=== PATIENT | male | born 2000 | race Caucasian/White ===

== ENCOUNTER 2024-03-30 07:30 | Emergency (ER) | payer SELFPAY ==
[~2024-03-30] VITALS: Ht 167.6 cm; Wt 75.0 kg
[2024-03-30 07:33] VITALS: BP 112/76; PULSE 78; RESP 16; TEMP 98.1; O2SAT 98
== END 2024-03-30 07:50 | disposition home or self-care (01) ==
LOC: ER 07:49
DX: R46.89 Other symptoms and signs involving appearance and behavior (principal)
CPT/HCPCS: 99283